=== PATIENT | female | born 1950 | race Caucasian/White ===

== ENCOUNTER 2025-05-09 09:09 | Outpatient (CLI) | payer MEDICARE, BC ==
--- NOTE | 2025-05-09 15:16 | RADIOLOGY REPORT ---
EXAM: MR MRI LOWER EXTREMITY RIGHT foot INDICATION: PAIN IN RIGHT FOOT TECHNIQUE: Multiplanar and multisequence MR imaging of the right ankle was performed in the absence o f gadolinium contrast. COMPARISON: None FINDINGS: No evidence of acute or healing fracture Articular surfaces are smooth and joint spaces are preserved. Along the plantar surfaces of the foot there are 2 well-circumscribed cystic lesions near the heads o f the 1st and 5th metatarsals most likely ganglion cysts. These are adjacent to the flexor tendon she aths. Lisfranc ligament is intact. There are mild degenerative changes at the articulation of the distal cu boid bone with the 4th and 5th metatarsal bases. IMPRESSION: 1. Small ganglion or synovial cysts along the plantar aspects of the foot near the 1st and 5th metata rsal heads. 2. Mild degenerative changes at the articular surfaces of the cuboid with the 4th and 5th metatarsal bases.
== END 2025-05-09 23:59 | disposition home or self-care (01) ==
LOC: MRI02 09:09
PROVIDERS: ATTEND Podiatrist Foot & Ankle Surgery
DX: S90.129A Contusion of unspecified lesser toe(s) without damage to nail, initial encounter (principal); S92.919A Unspecified fracture of unspecified toe(s), initial encounter for closed fracture; M79.671 Pain in right foot; M79.89 Other specified soft tissue disorders; M19.071 Primary osteoarthritis, right ankle and foot; M67.471 Ganglion, right ankle and foot; X58.XXXA Exposure to other specified factors, initial encounter; Y93.9 Activity, unspecified; Y92.89 Other specified places as the place of occurrence of the external cause; Y99.8 Other external cause status
CPT/HCPCS: 73718